=== PATIENT | male | born 2000 | race Two or more races ===

== ENCOUNTER 2018-11-17 18:03 | Emergency (ER) | payer BC, OTHER ==
[~2018-11-17] VITALS: Ht 180.3 cm; Wt 117.0 kg
[2018-11-17 18:23] VITALS: BP 133/84
--- NOTE | 2018-11-17 19:50 | NUR ---
Patient/Caregiver given discharge instructions and they have confirmed that they understand the instructions. Patient ambulatory with steady gait.
== END 2018-11-17 19:52 | disposition home or self-care (01) ==
LOC: ED 19:20
DX: S16.1XXA Strain of muscle, fascia and tendon at neck level, initial encounter (principal); V49.49XA Driver injured in collision with other motor vehicles in traffic accident, initial encounter; Y93.89 Activity, other specified; Y92.89 Other specified places as the place of occurrence of the external cause; Y99.8 Other external cause status
CPT/HCPCS: 72125; 99284

== ENCOUNTER 2019-02-23 15:09 | Emergency (ER) | payer BC, OTHER ==
[~2019-02-23] VITALS: Ht 182.9 cm; Wt 115.2 kg
[2019-02-23 15:12] VITALS: BP 123/83
== END 2019-02-23 15:51 | disposition home or self-care (01) ==
LOC: ED 15:45
DX: H66.001 Acute suppurative otitis media without spontaneous rupture of ear drum, right ear (principal)
CPT/HCPCS: 99283